=== PATIENT | female | born 1955 | race Caucasian/White ===

== ENCOUNTER 2016-08-11 20:46 | Emergency (ER) | payer BC ==
[~2016-08-11] VITALS: Ht 157.5 cm; Wt 67.3 kg
[2016-08-11 20:52] VITALS: BP 142/57; PULSE 64; RESP 16; TEMP 98.1; O2SAT 99
[2016-08-11] MEDS ORDERED: SODIUM CHLORIDE 0.9% FLUSH 10 ML FLUSH IV FLUSH PRN (21:30)
[2016-08-11 21:31] VITALS: O2SAT 99
--- NOTE | 2016-08-11 21:36 | PD ---
HPI Chief Complaint: Pain: Acute or Chronic Time Seen by Provider: 21:18 Travel History International Travel<30 days: No Contact w/Intl Traveler<30days: No Traveled to known affect area: No History of Present Illness HPI 60-year-old female here for evaluation of left thigh pain and left ankle swelling. Symptoms started about 3 days ago with pain in the left thigh which has been worsening, with left ankle swelling that worsened today. She denies any trauma. No recent travel or immobilization. No history of DVT or PE. No history of cancer. She has been having slight dyspnea and some upper respiratory symptoms. No chest pain. Pain in her left thigh is moderate, constant, worse with movement and palpation. No fevers or chills. PFSH Past Medical History ?: Not Social History Tobacco Use: No Allergies-Medications (Allergen,Severity, Reaction): Coded Allergies: Latex (Verified Allergy, Unknown, 08/11/16) Reported Meds & Prescriptions Reported Meds & Active Scripts Active No Active Prescriptions or Reported Medications Review of Systems Except as stated in HPI: all other systems reviewed are Neg Physical Exam Narrative GENERAL: Well-developed, well-nourished, comfortable, no acute distress. SKIN: Focused skin assessment warm/dry. Left medial thigh with mild erythema without warmth. CARDIOVASCULAR: Regular rate and rhythm. Bilateral dorsalis pedis pulses are brisk and equal. RESPIRATORY: No accessory muscle use. Clear to auscultation. Breath sounds equal bilaterally. MUSCULOSKELETAL: No obvious deformities. Left ankle with moderate edema when compared to the right. Left medial thigh with skin exam as above with mild to moderate tenderness throughout. No palpable cord. NEUROLOGICAL: Awake and alert. No obvious cranial nerve deficits. Motor grossly within normal limits. Normal speech. PSYCHIATRIC: Appropriate mood and affect; insight and judgment normal. Data Data Last Documented VS Vital Signs Date Time Temp Pulse Resp B/P Pulse Ox O2 Delivery O2 Flow Rate FiO2 08/11/16 21:31 99 Room Air 08/11/16 20:52 98.1 64 16 142/57 Orders Basic Metabolic Panel (Bmp) (08/11/16 21:24) Complete Blood Count With Diff (08/11/16 21:24) Prothrombin Time / Inr (Pt) (08/11/16 21:24) Act Partial Throm Time (Ptt) (08/11/16 21:24) Iv Access Insert/Monitor (08/11/16 21:24) Ecg Monitoring (08/11/16 21:24) Oximetry (08/11/16 21:24) Sodium Chloride 0.9% Flush (Ns Flush) (08/11/16 21:30) Us Leg Venous Doppler (08/11/16 ) Labs Laboratory Tests Test 08/11/16 22:15 White Blood Count 6.9 TH/MM3 Red Blood Count 4.37 MIL/MM3 Hemoglobin 13.7 GM/DL Hematocrit 41.0 % Mean Corpuscular Volume 93.9 FL Mean Corpuscular Hemoglobin 31.4 PG Mean Corpuscular Hemoglobin 33.5 % Concent Red Cell Distribution Width 13.1 % Platelet Count 199 TH/MM3 Mean Platelet Volume 8.5 FL Neutrophils (%) (Auto) 46.0 % Lymphocytes (%) (Auto) 42.9 % Monocytes (%) (Auto) 7.2 % Eosinophils (%) (Auto) 3.1 % Basophils (%) (Auto) 0.8 % Neutrophils # (Auto) 3.1 TH/MM3 Lymphocytes # (Auto) 3.0 TH/MM3 Monocytes # (Auto) 0.5 TH/MM3 Eosinophils # (Auto) 0.2 TH/MM3 Basophils # (Auto) 0.1 TH/MM3 CBC Comment DIFF FINAL Differential Comment Prothrombin Time 10.2 SEC Prothromb Time International 0.9 RATIO Ratio Activated Partial 26.3 SEC Thromboplast Time Sodium Level 142 MEQ/L Potassium Level 4.7 MEQ/L Chloride Level 108 MEQ/L Carbon Dioxide Level 28.1 MEQ/L Anion Gap 6 MEQ/L Blood Urea Nitrogen 16 MG/DL Creatinine 0.68 MG/DL Estimat Glomerular Filtration 89 ML/MIN Rate Random Glucose 91 MG/DL Calcium Level 8.8 MG/DL [facility] Medical Decision Making Medical Screen Exam Complete: Yes Emergency Medical Condition: Yes Differential Diagnosis DVT, cellulitis, musculoskeletal pain Narrative Course Vital signs show heart rate 64, blood pressure 142/57, pulse ox 99% on room air , oral temp of 98.1F. CBC is unremarkable. BMP is unremarkable. Coags are within normal limits. Left lower extremity venous duplex: No DVT. Patient and patient's significant other were made aware of all findings. She is resting comfortably. Her physical exam is not consistent with cellulitis. At this point she is stable for discharge home with outpatient follow-up with a primary care physician this week. She was informed on when to return to the emergency department. She verbalizes understanding and agreement with plan. Diagnosis Primary Impression: Left thigh pain Additional Impression: Leg edema, left Referrals: Primary Care Physician 3 days Additional Instructions: Follow-up with your primary care physician this week. Return to the emergency department for worsening symptoms or any other concerns. Scripts No Active Prescriptions or Reported Meds Disposition: 01 DISCHARGE HOME Condition: Stable Jose Alberto Cervantes MD Aug 11, 2016 21:36
--- NOTE | 2016-08-11 22:17 | RADRPT ---
EXAM DATE/TIME: 08/11/2016 21:57 [facility] COMPARISON: No previous studies available for comparison. INDICATIONS : Left leg swelling. MEDICAL HISTORY : Hernia. SURGICAL HISTORY : Hernia surgery x5. ENCOUNTER: Initial ACUITY: 3 days PAIN SCORE: 6/10 LOCATION: Left leg. TECHNIQUE: Venous ultrasound of the leg was performed from the inguinal ligament to the proximal calf. Real-shruti e, color Doppler and spectral tracing, compression and augmentation techniques were used. FINDINGS: There is normal compressibility of the deep venous system from the inguinal region to the proximal ca lf. No echogenic clot is seen in the lumen of the common femoral, femoral, popliteal, and posterior tibial veins. There is a normal response of the venous system to proximal and distal augmentation an d respiration. CONCLUSION: No DVT. Volodymyr Henriquez MD on August 11, 2016 at 22:15 Board Certified Radiologist. This report was verified electronically.
[2016-08-11 22:26] LABS: AUTOMATED NEUTROPHIL # 3.1 TH/MM3 (1.8-7.7); BASOPHIL # 0.1 TH/MM3 (0-0.2); BASOPHIL % 0.8 % (0.0-2.0); EOSINOPHIL # 0.2 TH/MM3 (0-0.4); EOSINOPHIL % 3.1 % (0.0-4.0); HEMO FLAGS DIFF FINAL; LYMPH % 42.9 % (9.0-44.0); MEAN CELL VOLUME 93.9 FL (80.0-100.0); MEAN CORPUSCULAR HEMOGLOBIN 31.4 PG (27.0-34.0); MEAN CORPUSCULAR HGB CONC 33.5 % (32.0-36.0); MONO % 7.2 % (0.0-8.0); PLATELET COUNT 199 TH/MM3 (150-450); RED BLOOD COUNT 4.37 MIL/MM3 (4.00-5.30); RED CELL DISTRIBUTION WIDTH 13.1 % (11.6-17.2); WHITE BLOOD COUNT 6.9 TH/MM3 (4.0-11.0)
[2016-08-11 22:42] LABS: BICARBONATE 28.1 MEQ/L (21.0-32.0); POTASSIUM 4.7 MEQ/L (3.5-5.1)
[2016-08-11 22:44] LABS: APTT (PATIENT) 26.3 SEC (24.3-30.1); INTERNATIONAL NORMALIZED RATIO 0.9 RATIO; PROTHROMBIN TIME - PATIENT 10.2 SEC (9.8-11.6)
== END 2016-08-11 23:20 | disposition home or self-care (01) ==
LOC: PHED 20:46
DX: M79.652 Pain in left thigh (principal); R60.0 Localized edema; R06.00 Dyspnea, unspecified
CPT/HCPCS: 80048; 85025; 85610; 85730; 93971; 99284